=== PATIENT | male | born 1955 | race Caucasian/White ===

== ENCOUNTER 2017-07-22 04:34 | Inpatient (IN) | payer MEDICARE ==
[2017-07-22] MEDS ORDERED: Vancomycin(*) 1,000 MG in NS 0.9% 250 ML* 250 ML IVPB ONE (05:45)
[2017-07-22] MEDS ORDERED: Piperacillin/Tazobac ADVAN(*) 3.375 GM in NS 0.9% 100 ML* 100 ML IVPB ONE (05:46)
[2017-07-22 06:31] LABS: ABS Basophils 0 10^3/ul (0-0.2); ABS Eosinophils 0 10^3/ul (0-0.6); ABS Lymphocytes 0.3 10^3/ul (1.0-4.8); ABS Monocytes 0.6 10^3/ul (0-0.8); ABS Neutrophils 16.7 10^3/ul (1.5-7.7); ABS Nucleated RBC 0 10^3/ul; Eosinophil % 0 % (0-6); Hematocrit 37 % (42-52); Hemoglobin 13.1 g/dl (14.0-18.0); Lymphocyte % 1.8 % (25-47); Mean Corpuscular HGB Conc 35 g/dl (31-36); Mean Corpuscular Hemoglobin 33 pg (27-31); Mean Corpuscular Volume 94 fL (80-94); Mean Platelet Volume 6.8 um3 (7.4-10.4); Nucleated Red Blood Cells % 0; Platelet Count 264 10^3/ul (150-450); Red Blood Count 3.95 10^6/ul (4.0-5.4); Red Cell Distribution Width 14 % (10.5-15); White Blood Count 17.7 10^3/ul (3.5-10.8)
[2017-07-22] MEDS: NS 0.9% 1000 ML* 2,000 ML IV ONE ×2 (06:31→08:17)
[2017-07-22 06:45] LABS: INR 1.32 (0.77-1.02)
[2017-07-22 06:52] LABS: EGFR Non-African American 104.8 (>60)
--- NOTE | 2017-07-22 06:57 | ED ---
Tk Ayers Gabriel, scribed for Zack Grayson MD on 07/22/17 at 0521 . Complex/Multi-Sys Presentation - HPI Summary HPI Summary: This patient is a 62 year old M BIBA to [facility] with a chief complaint of weakness since 72 hours ago. The patient rates the pain 2/10 in severity. Patient reports unable to ambulate and move his bilateral UE. Pt fell earlier today and now has back pain. Pt stats he was unable to make it to the bathroom today and had urinary incontinence. Pt is able to move bilat UEs on command. - History Of Current Complaint Chief Complaint: EDWeakness Time Seen by Provider: 07/22/17 04:38 Hx Obtained From: Patient Onset/Duration: Lasting Days - 3, Still Present Timing: Constant Severity Currently: Moderate Severity Initially: Moderate Location: Pain At: - back Associated Signs And Symptoms: Positive: Other - weakness, fall, difficulty ambulating - Allergies/Home Medications Allergies/Adverse Reactions: Allergies Allergy/AdvReac Type Severity Reaction Status Date / Time MS Benzyl Alcohol Allergy Rash Verified 10/05/14 11:13 [From Tazorac] MS Penicillin G Allergy Swelling Verified 10/05/14 11:13 [Penicillin G] MS Tazarotene [From Tazorac] Allergy Rash Verified 10/05/14 11:13 PMH/Surg Hx/FS Hx/Imm Hx Endocrine/Hematology History: Reports: Other Endocrine/Hematological Disorders Denies: Hx Diabetes Cardiovascular History: Reports: Hx Hypertension - ON MEDS Denies: Hx Pacemaker/ICD GI History: Reports: Hx Gall Bladder Disease - stones History: Denies: Hx Renal Disease Sensory History: Denies: Hx Hearing Aid Psychiatric History: Reports: Hx Anxiety, Hx Panic Disorder - XANAX FOR ANXIETY - Surgical History Surgery Procedure, Year, and Place: APPENDECTOMY; LASER EYE SURGERY Infectious Disease History: No Infectious Disease History: Denies: Traveled Outside the [place] in Last 30 Days - Family History Known Family History: Positive: Hypertension - Social History Alcohol Use: Occasionally Hx Substance Use: No Substance Use Type: Reports: None Hx Tobacco Use: Yes Review of Systems Constitutional: Other - fall Positive: Other - trouble ambulating Genitourinary: Other - urinary incontinence Positive: Other - weakness All Other Systems Reviewed And Are Negative: Yes Physical Exam - Summary Physical Exam Summary: VITAL SIGNS: Reviewed. GENERAL: Patient is an unkempt male who is lying comfortable in the stretcher. Patient appears pale and smells like smoke HEAD AND FACE: No signs of trauma. No ecchymosis, hematomas or skull depressions. No sinus tenderness. EYES: PERRLA, EOMI x 2, No injected conjunctiva, no nystagmus. EARS: Hearing grossly intact. Ear canals and tympanic membranes are within normal limits. MOUTH: Oropharynx within normal limits. NECK: Supple, trachea is midline, no adenopathy, no JVD, no carotid bruit, no c- spine tenderness, neck with full ROM. CHEST: Symmetric, no tenderness at palpation LUNGS: decereased breath sounds CVS: Regular rate and rhythm, S1 and S2 present, no murmurs or gallops appreciated. ABDOMEN: Soft, non-tender. distended. No rebound no guarding, and no masses palpated. Bowel sounds are normal. EXTREMITIES: FROM in all major joints, no edema, no cyanosis or clubbing. NEURO: Alert and oriented x 3. No acute neurological deficits. Speech is normal and follows commands. Grossly non focal generalized weakness of all extremities SKIN: there are multiple spots of ecchymosis of his legs, knees, and elbows Triage Information Reviewed: Yes Vital Signs On Initial Exam: Initial Vitals Temp Pulse Resp BP Pulse Ox 97.4 F 92 18 80/60 98 07/22/17 04:36 07/22/17 04:36 07/22/17 04:36 07/22/17 04:36 07/22/17 04:36 Vital Signs Reviewed: Yes Diagnostics - Vital Signs Vital Signs Temp Pulse Resp BP Pulse Ox 07/22/17 04:36 97.4 F 92 18 80/60 98 - Laboratory Result Diagrams: 07/22/17 06:11 07/22/17 06:11 Lab Statement: Any lab studies that have been ordered have been reviewed, and results considered in the medical decision making process. - Radiology CXR Radiology Interpretation Completed By: ED Physician - bilateral PNA, normal heart size - CT CT Lspine CT Interpretation Completed By: Radiologist - there is no definitive evidence of acute compression fracture or subluxation. There is a multilevel mulit- factorial spondylosis. There is suggestive a diminished changes of the retro peritoneum Dr. Grayson has reviewed this report. CT Cspine CT Interpretation Completed By: Radiologist - there is no definitive evidence of acute compression fracture or subluxation. There is a multilevel mulit- factorial spondylosis. There is suggestive a diminished changes of the retro peritoneum Dr. Grayson has reviewed this report. - EKG 0441 Cardiac Rate: NL EKG Rhythm: Sinus Rhythm - at 94 BPM EKG Interpretation: Normal axis. Normal interval. No ischemic changes Complex Multi-Symp Course/Dx Assessment/Plan: This patient is a 62 year old M BIBA to [facility] with a chief complaint of weakness since 72 hours ago. The patient rates the pain 2/10 in severity. Patient reports unable to ambulate and move his bilateral UE. Pt fell earlier today and now has back pain. Pt stats he was unable to make it to the bathroom today and had urinary incontinence. Pt is able to move bilat UEs on command. An EKG reveals sinus 94 Normal axis. Normal interval. No ischemic changes. CXR reveals, bilateral PNA, normal heart size. CT T-spine reveals, there is no definitive evidence of acute compression fracture or subluxation. There is a multilevel mulit-factorial spondylosis. There is suggestive a diminished changes of the retro peritoneum. CT- L-spine shows, there is no definitive evidence of acute compression fracture or subluxation. There is a multilevel mulit-factorial spondylosis. There is suggestive a diminished changes of the retro peritoneum. Test results with no significant abnormalities except for a CRP of 19, BUN of 34, and WBC of 17. In the ED course the patient was given vancomycin and IV fluids. The pt will be signed out to Dr. Fink awating labs and dispo - Diagnoses Provider Diagnoses: PNA (pneumonia) Discharge - Sign-Out/Discharge Documenting (check all that apply): Sign-Out Patient Signing out patient TO: Joshua Fink - Discharge Plan Referrals: Kalen Parr MD [Primary Care Provider] - The documentation as recorded by the Tk york Gabriel accurately reflects the service I personally performed and the decisions made by me, Zack Grayson MD.
[2017-07-22] MEDS ORDERED: Ondansetron INJ* 2 MG/ML VIAL IV ONE (07:40)
[2017-07-22] MEDS ORDERED: NS 0.9% 1000 ML* 1,000 ML IV ONE (07:40)
[2017-07-22] MEDS ORDERED: Albuterol/Ipratropium NEB.SOL* Albuterol 2.5 MG/Ipratropium 0.5 MG 3 ML INH ONE (07:40)
--- NOTE | 2017-07-22 07:46 | ED ---
Lucinda Ayers Thomas, scribed for Joshua Fink MD on 07/22/17 at 0728 . Progress - Progress Note Progress Note: The patient is a sign out from Dr. Grayson, pending labs and awaiting disposition. Re-Evaluation - Re-Evaluation First Eval Re-Evaluation Time: 07:35 - AWAKE, ALERT. NO C/O SOB. C/O GENERALIZED WEAKNESS. C/O NAUSEA. BP SYSYOLIC 112. DUO NEB, ZOFRAN AND A 3RD LITER ON NS ORDERED WHICH WILL GIVE > 30ML/KG IVF IN THE ED. Course/Dx - Course Course Of Treatment: DISCUSSED WITH DR RODRIGUEZ, HOSPITALIST, WHO WILL ADMIT THE PATIENT. - Provider Notifications Discussed Care Of Patient With: Monique Rodriguez Time Discussed With Above Provider: 07:28 Instructed by Provider To: Admit As Inpatient Discharge - Sign-Out/Discharge Documenting (check all that apply): Discharge - The patient is admitted to [facility] by Dr. Rodriguez. , Receiving Sign-Out Receiving patient FROM: Zack Grayson - Discharge Plan Condition: Fair Disposition: ADMITTED TO [facility] Referrals: Kalen Parr MD [Primary Care Provider] - - Billing Disposition and Condition Condition: FAIR Disposition: HOSP-[facility] The documentation as recorded by the Lucinda york Thomas accurately reflects the service I personally performed and the decisions made by , Joshua Fink MD.
--- NOTE | 2017-07-22 07:53 | RAD ---
HISTORY: Shortness of breath COMPARISONS: CT dated March 30, 2015, CT of the thoracic spine dated July 22, 2012 VIEWS: 2: frontal portable view of the chest at 5:13 AM FINDINGS: LINES AND TUBES: None. CARDIOMEDIASTINAL SILHOUETTE: The cardiomediastinal silhouette is normal for portable technique. PLEURA: The costophrenic angles are sharp. No pleural abnormalities are noted. LUNG PARENCHYMA: There is diffuse multifocal pattern of reticulonodular opacification throughout both lung nuñez with apical predominance. There is patchy alveolar opacification of the right lung base. ABDOMEN: The upper abdomen is clear. There is no subphrenic gas. BONES AND SOFT TISSUES: No bone or soft tissue abnormalities are noted. IMPRESSION: MULTIFOCAL RETICULONODULAR OPACIFICATION THROUGHOUT BOTH LUNGS WITH MORE FOCAL AIRSPACE DISEASE OF THE RIGHT LOWER LUNG. THE RETICULONODULAR PATTERN APPEARS TO CORRESPOND TO THE MULTIPLE PULMONARY PARENCHYMAL NODULES NOTED ON THE CT REPORTED ON JULY 22, 2017. THERE IS MORE FOCAL AIRSPACE DISEASE OF THE RIGHT LOWER LUNG.
--- NOTE | 2017-07-22 08:00 | RAD ---
HISTORY: Fall, muscle weakness COMPARISONS: MRI dated June 18, 2013, chest x-ray dated July 22, 2014, CT of the thoracic spine dated July 22, 2017. TECHNIQUE: Multiple contiguous axial CT scans were obtained of the lumbar spine without intravenous contrast, with coronal and sagittal multiplanar reformations. FINDINGS: SPINAL CANAL: Evaluation of the central canal is limited on CT technique; however, there is no obvious canalicular mass or epidural hemorrhage. ALIGNMENT: The alignment is normal. VERTEBRAL BODIES: There is an accessory rib of L1 on the right. There is depression of the superior endplate of L1 with a linear lucency paralleling the superior endplate, consistent with a subacute compression fracture. There is no osseous retropulsion. There is sclerotic reactive end plate changes at L2-L3. There is multilevel anterolateral marginal osteophyte formation. JOINTS: There is diffuse facet osteoarthritis most pronounced along the lower lumbar spine. MUSCULATURE: Unremarkable INTERVERTEBRAL DISCS: There is diffuse loss of intervertebral disc height throughout the spine. AXIAL IMAGES: T11-T12: There is no osseous neural foraminal narrowing or central canal stenosis. T12-L1: There is no osseous neural foraminal narrowing or central canal stenosis. L1-L2: There is no osseous neural foraminal narrowing or central canal stenosis. L2-L3: There is ligamentous and facet hypertrophy. There is marginal osteophyte formation at the neural foramina bilaterally. There is severe bilateral neural foraminal narrowing. There is moderate narrowing of the central canal. L3-L4: There is bilateral facet hypertrophy. There is marginal osteophyte formation at the neural foramina bilaterally. There is ligamentous hypertrophy with a mild disc bulge. There is severe right and moderate left neural foraminal narrowing. There is mild narrowing of the central canal. L4-L5: There is a broad-based disc bulge. There is bilateral facet hypertrophy. There is moderate left neural foraminal narrowing. There is no significant central canal stenosis. L5-S1: There is bilateral facet hypertrophy with marginal osteophyte formation on the right. There is moderate right neural foraminal narrowing. There is no significant central canal stenosis. SOFT TISSUES: There is retroperitoneal edema with retrocardiac lymphadenopathy.. OTHER: None IMPRESSION: 1. SUBACUTE COMPRESSION FRACTURE OF L1, WITHOUT OSSEOUS RETROPULSION. 2. DEGENERATIVE DISC DISEASE AND OSTEOARTHRITIS. 3. THERE IS MODERATE NARROWING OF THE CENTRAL CANAL AT L2-L3 WITH MILD NARROWING AT L3-L4. IS MULTILEVEL NEURAL FORAMINAL NARROWING RIGHT ABOVE. 4. THERE IS RECURRENT NO LYMPHADENOPATHY. GIVEN THE FINDINGS ON CHEST X-RAY AND CT OF THE THORACIC SPINE, THIS IS CONCERNING FOR METASTATIC DISEASE. PRELIMINARY FINDINGS WERE DISCUSSED WITH DR. VINCENT AT APPROXIMATELY 7:56 AM ON JULY 22, 2017.
--- NOTE | 2017-07-22 08:03 | RAD ---
HISTORY: Fall, muscle weakness COMPARISONS: Chest x-ray dated July 22, 2012, CT of the lumbar spine dated July 22, 2017 TECHNIQUE: Multiple contiguous axial CT scans were obtained of the thoracic spine without intravenous contrast, with coronal and sagittal multiplanar reformations. FINDINGS: SPINAL CANAL: Evaluation of the central canal is limited on CT technique; however, there is no obvious canalicular mass or epidural hemorrhage. ALIGNMENT: There is a mild dextroscoliotic curvature of the spine. VERTEBRAL BODIES: The vertebral bodies are preserved in height. There is diffuse osteopenia. Is multilevel anterolateral marginal osteophyte formation. JOINTS: There is osteoarthritis of the costovertebral articulations. MUSCULATURE: Unremarkable INTERVERTEBRAL DISCS: There is diffuse loss of intervertebral disc height throughout the spine. AXIAL IMAGES: There is no osseous central canal stenosis or neuroforaminal narrowing. SOFT TISSUES: There are large bilateral pleural effusions. There are multiple pulmonary parenchymal nodules, measuring at least 1.1 cm in size. This appears to correspond to the reticular nodular pattern noted on chest x-ray. OTHER: None IMPRESSION: 1. OSTEOPENIA. 2. DEGENERATIVE DISC DISEASE AND OSTEOARTHRITIS. 3. THERE IS NO OSSEOUS NEURAL FORAMINAL AREA OR CENTRAL CANAL STENOSIS. 4. LARGE BILATERAL PLEURAL EFFUSIONS. 5. MULTIPLE PULMONARY PARENCHYMAL NODULES CORRESPONDING TO THE RETICULAR NODULAR PATTERN NOTED ON CHEST X-RAY, CONSISTENT WITH METASTATIC DISEASE TO THE LUNGS. PRELIMINARY FINDINGS WERE DISCUSSED WITH DR. VINCENT AT APPROXIMATELY 7:56 AM ON JULY 22, 2017.
[2017-07-22] MEDS ORDERED: BuPROPion XL* 300 MG TAB.XL PO PRN (08:04)
[2017-07-22] MEDS ORDERED: Albuterol/Ipratropium NEB.SOL* Albuterol 2.5 MG/Ipratropium 0.5 MG 3 ML INH PRN (08:05)
[2017-07-22] MEDS ORDERED: Morphine INJ* 2 MG/ML 1 ML CARPUJECT IV PRN (08:05)
[2017-07-22] MEDS ORDERED: NS 0.9% 1000 ML* 1,000 ML IV SCH (08:15)
[2017-07-22 08:26] LABS: Urine Appearance Cloudy; Urine Blood Negative (Negative); Urine Color Yellow; Urine Ketones Trace (Negative); Urine Protein 1+(30 mg/dL) (Negative); Urine Urobilinogen Positive (Negative)
--- NOTE | 2017-07-22 10:44 | HP ---
CC: Emergency room provider, Dr. Joshua Fink; primary care provider, Dr. Neno Parr; Consulting Critical Care Provider, Dr. Александр Leigh * HISTORY AND PHYSICAL: DATE OF ADMISSION: 07/22/17 TIME OF EVALUATION: 07:45 a.m. CHIEF COMPLAINT: "I am weak." HISTORY OF PRESENT ILLNESS: Mr. Jaramillo is a 62-year-old male with a past medical history of Asperger's disorder, testicular hypofunction, cholelithiasis , spinal stenosis, hyperlipidemia, hypertension, tobacco abuse, who presents to the emergency room after he sustained a fall at home and was unable to stand up , needing to call EMS to bring him to the emergency room. Mr. Jaramillo is somewhat of a poor historian, but he is able to tell me that for the past 2 days he has been feeling "crappy." He states that his breathing was "rough" and he had some dry cough and some diffuse chest pain with inspiration that he graded 2/10 with no radiation. When asked to pinpoint where exactly is the pain, he states "I have pain in both my lobes." He states that his appetite was unchanged and that he was trying to drink fluids but he was feeling dehydrated. When asked to explain what he meant by that, he states that he felt weak and lightheaded. He denies nausea, vomiting, or diarrhea. He states that he sustained multiple falls over the past 48 hours, but the last one last night he was unable to get up. He does not know exactly how long he was on the floor, but he had to crawl to his kitchen and used a cane to drop his phone from a table and then he was able to call EMS. He states that both his arms and legs were weak and he felt like "I did not have enough oxygen on them." In the emergency room, the patient's workup revealed leukocytosis, hyponatremia and bilateral infiltrates in his chest x-ray and for that reason the hospitalist service was called for admission. PAST MEDICAL HISTORY: 1. Asperger's disorder. 2. Testicular hypofunction, AndroGel was discontinued due to severe anxiety. 3. Cholelithiasis. 4. Spinal stenosis. 5. Tobacco abuse. 6. Hyperlipidemia. 7. Hypertension. MEDICATION LIST: As per ED note: 1. Alprazolam 0.5 mg p.o. t.i.d. as needed for anxiety. 2. Bupropion XL 300 mg p.o. daily as needed for depression. 3. Clonazepam 1 mg p.o. q.p.m. 4. Haldol 4 mg p.o. b.i.d. 5. Methylphenidate 10 p.o. b.i.d. to t.i.d. 6. Metoprolol succinate 50 mg p.o. daily. 7. Ursodiol 300 mg p.o. b.i.d. ALLERGIES: With TAZORAC the patient had a rash and with PENICILLIN the patient had swelling. FAMILY HISTORY: Reviewed and the patient has family history of gastrointestinal tumor. SOCIAL HISTORY: The patient lives by himself. He states that he was a heavy drinker since 1996 when his mother passed up to half a bottle of vodka a day, but states that he quit a year ago. He is a smoker, he started when he was 14, up to 2 packs a day and he states that he is now smoking 5 to 10 cigarettes a day. He denies drug use. Surrogate decision maker is his friend, Florentin De Los Santos, phone number [phone]. REVIEW OF SYSTEMS: A 14-point review of systems was performed and all the pertinent negative and positive findings are in the HPI. PHYSICAL EXAMINATION GENERAL: The patient is an elderly male with very disheveled appearance, lying in the ED stretcher in no acute distress. VITAL SIGNS: Temperature 97.4, heart rate is 92, respiratory rate is 14, oxygen saturation 93% on room air, blood pressure is 103/65 but it was 80/60 on arrival to the emergency room. HEENT: Pupils are equal. The patient has significant lid lag and mild scleral icterus. NECK: No JVD. No thyromegaly. CHEST: Breath sounds bilaterally decreased. There is no added sounds. CVS: Normal S1, S2. Regular rate and rhythm with distant sounds. ABDOMEN: Soft with mild epigastric tenderness. Hepatomegaly, non tender. No guarding, no rebound. Bowel sounds present. EXTREMITIES: No edema. SKIN: multiple bruises on different stages on healing. NEUROLOGIC: The patient is alert and oriented x3, able to move all 4 extremities. LABORATORY AND IMAGING DATA: The patient had a CBC that showed a WBC of 17.7, hemoglobin of 13, hematocrit of 37, platelets of 264 with 94% neutrophils. His INR was 1.3. Chemistry showed a sodium of 116, potassium of 3.9, chloride of 80 , bicarb of 26, BUN of 26, creatinine 0.75, glucose of 88, lactic acid of 1.8, calcium of 9.3. LFTs showed a total bilirubin of 2.3, AST of 169, ALT of 58, alk phos 243. CPK was 1388 with a troponin of 0.05, CRP of 19, BNP 82. Total protein 6.2, albumin 3.9, globulin 7.3. EKG done on 07/22/17 at 04:41 a.m. showed sinus rhythm at 94 beats per minute with low voltage in the precordial leads, but no significant ST-T changes. There is no prior EKG to compare. Chest x-ray showed multifocal reticular nodular opacification at both lungs with more focal airspace disease in the right lower lung. The reticular nodular pattern appears to correspond to the multiple pulmonary parenchymal nodules noted on the CT. There is more focal airspace disease at the right lower lung. CT of the lumbar spine, subacute compression fracture of L1 without osseous retropulsion. Degenerative disk disease and osteoarthritis. There is moderate narrowing of the central canal L2-L3 with mild narrowing at L3-L4. There is multilevel neural foraminal narrowing on the right side. There is retroperitoneal edema with retrocardiac lymphadenopathy and this associated with findings on chest x-ray and CT of thoracic spine is concerning for metastatic disease. CT of the thoracic spine shows osteopenia, degenerative disk disease and osteoarthritis with no osseous neural foraminal area or central canal stenosis. Large bilateral pleural effusions. Multiple pulmonary parenchymal nodules corresponding to the reticular nodular pattern noted on chest x-ray consistent with metastatic disease to the lungs. ASSESSMENT AND PLAN: Mr. Jaramillo is a 62-year-old male with past medical history of Asperger's, hypertension, hyperlipidemia, cholelithiasis, tobacco abuse that presented to the emergency room with complaints of weakness, found to have severe sepsis secondary to pneumonia versus possible cholecystitis in the setting of probable metastatic disease. 1. Severe sepsis. The patient's presentation was compatible with systemic inflammatory response syndrome on presentation with tachycardia and leukocytosis. On top of that, he was also hypotensive with a blood pressure of 80/60 on ER arrival. The patient also presented with transaminitis and severe hyponatremia. Source appears to be pneumonia. 2. Pneumonia. The patient's chest x-ray shows bilateral reticular nodular infiltrates that could be secondary to metastatic disease, but at this point we cannot rule out infection. Blood, sputum and urine cultures will be sent as well as Legionella and pneumococcal antigens. He will be started empirically on ceftriaxone and Zithromax and due to his presentation with hypotension, transaminitis, severe hyponatremia, the patient will be admitted to the intensive care unit. 3. Transaminitis. The patient has a history of alcohol abuse for 20 years, but he states that he quit. He also has a history of cholelithiasis. He will have a CT of the abdomen to better assess his liver. His transaminitis could be associated to sepsis, possible cholecystitis, but also metastatic disease. 4. Severe hyponatremia. The patient was found to have a sodium of 116. At this point, his mental status is intact with no signs of confusion. He did have mild hyponatremia in the past with a sodium of 129 in early 2017. With his history of tobacco abuse and lung nodules, I suspect his hyponatremia secondary to SIADH associated with pulmonary problem, but he does appear to have mild dehydration. He will be admitted to the intensive care unit. He will receive IV hydration and we will monitor his sodium level. 5. Rhabdomyolysis. The patient's CPK is 1300 and this is likely associated with his falls and stay on the floor for a prolonged period until he was able to call EMS. We are going to trend his CPK and monitor his renal function. 6. Troponin elevation. His troponin is 0.05. His EKG showed no ischemic changes, we are going to check serial troponin and this could be secondary to increased demand in the setting of sepsis. 7. Lid lag. We will check patient's thyroid function, but I believe this is likely his baseline. 8. Possible metastatic disease. The patient is a heavy smoker that presents with lung nodules and lymphadenopathy, highly suspicious for malignancy. The patient will have a CT of the chest, abdomen and pelvis with IV contrast to better delineate the disease process and depending on the findings, we will pursue biopsy. 9. DVT prophylaxis: The patient has a score of 2 on the DVT Prophylaxis Risk Assessment Guide and he will be started on subcutaneous heparin. 10. Code status is full. TIME SPENT: Approximately 60 minutes was spent with the patient interview, medical records review, physical examination to complete this admission; more than half this time was spent [id number] with patient and coordination of care. [id number]/[facility] #: [id number] RAMONE
[2017-07-22] MEDS: Methylphenidate TAB* 10 MG PO SCH ×2 (11:07→14:43)
[2017-07-22] MEDS: Haloperidol TAB* 2 MG PO SCH ×2 (11:08→21:45)
[2017-07-22] MEDS: Ursodiol CAP* 300 MG PO SCH ×2 (11:08→21:38)
[2017-07-22] MEDS: cefTRIAXone(*) 1 GM in NS 0.9% 50 ML* 50 ML IVPB SCH (11:09)
[2017-07-22 11:22] LABS: EGFR Non-African American 135.6 (>60)
[2017-07-22] MEDS ORDERED: Iohexol 300* (CONTRAST) 10 ML SDV IV ONE (11:56)
[2017-07-22] MEDS ORDERED: Potassium Chloride LIQUID* 20 MEQ PACKET PO ONE (12:07)
--- NOTE | 2017-07-22 12:07 | CONSULT ---
Consult Consult: Consultation Note Critical Care Requesting Physician: Dr Shu Rodriguez Reason for consult: sepsis Limitations in history/physical: none Date of consult: 07/22/2017 HPI: 62y M w/pmhx of HTN, cholelithiasis, anxiety disorder, Aspergers disorder, testicular dysfunction, spinal stenosis, tobacco use; presents to ER for weakness x3 days, associated with weakness in upper extremities. He states incontinence noted at home. Patient fell at home and unable to stand, hence he called EMS. Some chest discomfort on inspiration. No change in appetite noted. No fever/chills/sob. In ER, tachycardic 92, BP 80/60s, RR 18 sat 98%, temp 97.4. WBC 17. Started on sepsis protocol and given IVF and IV abx. CXR 07/22 with suspected Right lower lobe pneumonia. ROS: negative except for pertinent positives mentioned above. PMHx: hypertension, cholelithiasis, anxiety disorder, Aspergers disorder, testicular dysfunction, spinal stenosis, tobacco use PSHx: appendectomy Family History: HTN Social History: Alcohol-occassional, Smoking-in past, Drug use-no Allergies: Allergies Allergy/AdvReac Type Severity Reaction Status Date / Time benzyl alcohol Allergy Rash Verified 07/22/17 08:36 penicillin G Allergy Swelling Verified 07/22/17 08:36 tazarotene Allergy Rash Verified 07/22/17 08:36 Home Medications: ALPRAZolam TAB* [Xanax TAB*] 0.5 mg PO TID PRN 07/22/17 [History Confirmed 07/22] BuPROPion XL* [Bupropion XL*] 300 mg PO DAILY PRN 07/22/17 [History Confirmed ] Haloperidol TAB* [Haldol TAB*] 4 mg PO BID 07/22/17 [History Confirmed 07/22/17] Methylphenidate TAB* [Ritalin TAB*] 10 mg PO .BID-TID 07/22/17 [History Confirmed 07/22/17] Metoprolol Succinate XL TAB* [Toprol XL TAB*] 50 mg PO DAILY 07/22/17 [History Confirmed 07/22/17] Ursodiol CAP* [Actigall CAP 300 MG*] 300 mg PO BID 07/22/17 [History Confirmed 07/22/17] clonazePAM TAB(*) [KlonoPIN TAB(*)] 1 mg PO QPM 07/22/17 [History Confirmed ] Tele: NSR Vitals: Vital Signs Temp 98 F 07/22/17 09:20 Pulse 95 07/22/17 11:00 Resp 18 07/22/17 11:00 BP 121/79 07/22/17 11:00 Pulse Ox 97 07/22/17 11:00 Intake & Output 07/21/17 07/22/17 07/22/17 18:59 06:59 18:59 Intake Total 1702 Output Total 350 Balance 1352 Weight 190 lb 184 lb Intake: IV Fluids 1352 Oral 350 Output: Urine 350 O2/Vent: RA Infusions: NS 150 cc/hr Current Medications: Acetaminophen (Tylenol Tab*) 650 mg PO Q6H PRN PRN Reason: pain/fever Albuterol/Ipratropium (Duoneb (Albuterol 2.5 Mg/Ipratropium 0.5 Mg)) 1 neb INH Q4H PRN PRN Reason: SOB/WHEEZING Alprazolam (Xanax Tab*) 0.5 mg PO TID PRN PRN Reason: AGITATION/ANXIETY Bupropion HCl (Bupropion Xl*) 300 mg PO DAILY PRN PRN Reason: PER PROTOCOL Clonazepam (Klonopin Tab(*)) 1 mg PO QPM [place] Haloperidol (Haldol Tab*) 4 mg PO BID [facility] Last Admin: 07/22/17 11:08 Dose: Not Given Heparin Sodium (Porcine) (Heparin Vial(*)) 5,000 units SUBCUT Q8HR [facility] Ceftriaxone Sodium 1 gm/ (Sodium Chloride) 50 mls @ 200 mls/hr IVPB Q24H [facility] Last Admin: 07/22/17 11:09 Dose: 200 mls/hr Azithromycin 500 mg/ Sodium (Chloride) 250 mls @ 250 mls/hr IVPB Q24H [facility] Sodium Chloride (Ns 0.9% 1000 Ml*) 1,000 mls @ 100 mls/hr IV PER RATE [facility] Methylphenidate HCl (Ritalin Tab*) 10 mg PO 0800,1500 [facility] Last Admin: 07/22/17 11:07 Dose: Not Given Morphine Sulfate (Morphine Inj (Syringe)*) 2 mg IV Q4H PRN PRN Reason: PAIN Ursodiol (Actigall Cap*) 300 mg PO BID [place] Last Admin: 07/22/17 11:08 Dose: Not Given Physical Exam: General: awake, alert, no distress, no diaphoresis Head: normocephalic, atraumatic HEENT: no pallor, no icterus, moist mucous membranes Neck: soft, supple, no jvd, no stridor CVS: normal rate, regular, no murmur Resp: bilateral air entry, no rhales, no wheeze, no rhonchi, no acc muscle use Abdomen: soft, nontender, nondistended, bs+ Ext: pulses+, warm, no edema Skin: intact Neuro: awake, alert, orientedx3, moving all extremities, no gross focal deficit Labs: Laboratory Results - last 24 hr 07/22/17 07/22/17 07/22/17 06:11 06:11 06:11 WBC 17.7 H RBC 3.95 L Hgb 13.1 L Hct 37 L MCV 94 MCH 33 H MCHC 35 RDW 14 Plt Count 264 MPV 6.8 L Neut % (Auto) 94.3 H Lymph % (Auto) 1.8 L [place] % (Auto) 3.7 Eos % (Auto) 0 Baso % (Auto) 0.2 Absolute Neuts (auto) 16.7 H Absolute Lymphs (auto) 0.3 L Absolute Monos (auto) 0.6 Absolute Eos (auto) 0 Absolute Basos (auto) 0 Absolute Nucleated RBC 0 Nucleated RBC % 0 INR (Anticoag Therapy) 1.32 H APTT 27.2 Sodium 116 L* Potassium 3.9 Chloride 80 L Carbon Dioxide 26 Anion Gap 10 BUN 26 H Creatinine 0.75 Est GFR ( Amer) 134.8 Est GFR (Non-Af Amer) 104.8 BUN/Creatinine Ratio 34.7 H Glucose 88 Lactic Acid Calcium 9.3 Total Bilirubin 2.30 H AST 169 H ALT 58 H Alkaline Phosphatase 243 H Total Creatine Kinase 1388 H Troponin I 0.05 H* C-Reactive Protein 19.07 H B-Natriuretic Peptide Total Protein 6.2 L Albumin 3.9 Globulin 2.3 Albumin/Globulin Ratio 1.7 TSH 5.02 Urine Color Urine Appearance Urine pH Ur Specific [place] Urine Protein Urine Ketones Urine Blood Urine Nitrate Urine Bilirubin Urine Urobilinogen Ur Leukocyte Esterase Urine WBC (Auto) Urine RBC (Auto) Urine Bacteria Ur Random Creatinine Ur Random Sodium Urine Glucose Urine Ascorbic Acid Urine Opiates Screen Ur Barbiturates Screen Ur Phencyclidine Scrn Ur Amphetamines Screen U Benzodiazepines Scrn Urine Cocaine Screen U Cannabinoids Screen 07/22/17 07/22/17 07/22/17 06:11 06:11 08:02 WBC RBC Hgb Hct MCV MCH MCHC RDW Plt Count MPV Neut % (Auto) Lymph % (Auto) [place] % (Auto) Eos % (Auto) Baso % (Auto) Absolute Neuts (auto) Absolute Lymphs (auto) Absolute Monos (auto) Absolute Eos (auto) Absolute Basos (auto) Absolute Nucleated RBC Nucleated RBC % INR (Anticoag Therapy) APTT Sodium Potassium Chloride Carbon Dioxide Anion Gap BUN Creatinine Est GFR ( Amer) Est GFR (Non-Af Amer) BUN/Creatinine Ratio Glucose Lactic Acid 1.8 Calcium Total Bilirubin AST ALT Alkaline Phosphatase Total Creatine Kinase Troponin I C-Reactive Protein B-Natriuretic Peptide 82 Total Protein Albumin Globulin Albumin/Globulin Ratio TSH Urine Color Urine Appearance Urine pH Ur Specific [place] Urine Protein Urine Ketones Urine Blood Urine Nitrate Urine Bilirubin Urine Urobilinogen Ur Leukocyte Esterase Urine WBC (Auto) Urine RBC (Auto) Urine Bacteria Ur Random Creatinine Ur Random Sodium Urine Glucose Urine Ascorbic Acid Urine Opiates Screen None detected Ur Barbiturates Screen None detected Ur Phencyclidine Scrn None detected Ur Amphetamines Screen None detected U Benzodiazepines Scrn Presumptive positive A Urine Cocaine Screen None detected U Cannabinoids Screen None detected 07/22/17 07/22/17 07/22/17 08:02 10:48 10:52 WBC RBC Hgb Hct MCV MCH MCHC RDW Plt Count MPV Neut % (Auto) Lymph % (Auto) [place] % (Auto) Eos % (Auto) Baso % (Auto) Absolute Neuts (auto) Absolute Lymphs (auto) Absolute Monos (auto) Absolute Eos (auto) Absolute Basos (auto) Absolute Nucleated RBC Nucleated RBC % INR (Anticoag Therapy) APTT Sodium 120 L Potassium 3.6 Chloride 89 L Carbon Dioxide 23 Anion Gap 8 BUN 22 Creatinine 0.60 L Est GFR ( Amer) 174.4 Est GFR (Non-Af Amer) 135.6 BUN/Creatinine Ratio 36.7 H Glucose 84 Lactic Acid Calcium 8.0 L Total Bilirubin AST ALT Alkaline Phosphatase Total Creatine Kinase Troponin I 0.04 H* C-Reactive Protein B-Natriuretic Peptide Total Protein Albumin Globulin Albumin/Globulin Ratio TSH Urine Color Yellow Urine Appearance Cloudy Urine pH 6.0 Ur Specific [place] 1.020 Urine Protein 1+(30 mg/dl) A Urine Ketones Trace A Urine Blood Negative Urine Nitrate Negative Urine Bilirubin Negative Urine Urobilinogen Positive A Ur Leukocyte Esterase Negative Urine WBC (Auto) Trace(0-5/hpf) Urine RBC (Auto) Trace(0-2/hpf) Urine Bacteria Absent Ur Random Creatinine 20.32 Ur Random Sodium < 18 Urine Glucose Negative Urine Ascorbic Acid * A Urine Opiates Screen Ur Barbiturates Screen Ur Phencyclidine Scrn Ur Amphetamines Screen U Benzodiazepines Scrn Urine Cocaine Screen U Cannabinoids Screen Imaging: cxr 07/22 - reviewed ; reticulonodular densities bilaterally, suspected right lower lobe consolidation+ Assessment: 62y M w/pmhx of HTN, cholelithiasis, anxiety disorder, Aspergers disorder, testicular dysfunction, spinal stenosis, tobacco use; presents to ER for weakness x3 days, associated with weakness in upper extremities. He states incontinence noted at home. Patient fell at home and unable to stand, hence he called EMS. Hypotensive to 80s in ER, responded to IVF. -Severe Sepsis -Suspected Right lower lobe pneumonia -s/p fall -Rhabdomyolysis -hypovolemic hyponatremia -Elevated LFTs -reticulonodular infiltrates+ -r/o biliary obstruction and cholecystitis Aspergers disorder Anxiety disorder Plan: Neuro- stable. Known history of Aspergers. Cont Ritalin. Cont clonazepam and Alprazolam PRN. CVS- BP in 120-130s, improved after IVF. Suspect volume depletion, poor PO intake+, hypovolemia, possible sepsis. Cont IV Abx. Check LA next blood draw x1. Follow urine output. HR still 90s. Resp- on RA, no distress. CXR with suspected RLL infiltrate and bilateral reticulonodular infiltrates. IV abx. Bronchodilators PRN. CT chest today for eval of infiltrates/nodules. ID- afebrile. wbc 17. Possible RLL infiltrate. R/o biliary obstruction/ cholecystitis given elevated LFTs and Alk phos. For CT chest/abd/pelvis today. h /o cholelithiasis in past. Cont Ceftriaxone/Azithromycin IV daily (day#1) GI- Pending CT abd. Can probably start PO diet today. Renal- Cr okay. BUN was slightly elevated 26 on admission, repeat improved. Hyponatremia/hypochloremia. Suspect intravascular volume depletion as cause of electrolyte depletion and hypotension. Na improving also. Cont NS, dec to 100cc/ hour. Unclear how long sodium has been low but would slowly increase with normal tonic fluid. No aleman indicated at this time if able to track urine output. Noted CPK, repeat tomorrow, cont IVF hydration to prevent ALESSANDRO. Heme- hg 13. plt okay. DVT proph with heparin sq/mechanical. Endo- fingersticks as needed. TSH normal. Musculsk- no noted weakness, able to move all ext. Noted rhabdo, check cpk in AM. Cont IVF hydration. Wounds- none Nutrition- regular diet for now. DVT prophylaxis: heparin sq GI prophylaxis: none Central Line: no Arterial Line: no Aleman Cathetor: no Disposition: ICU, can be stable for medical floor transfer Code Status: full code Александр Leigh MD Filling And Packing Supervisor (Electronically Signed)
[2017-07-22] MEDS: Azithromycin IV(*) 500 MG in NS 0.9% 250 ML* 250 ML IVPB SCH (12:31)
[2017-07-22] MEDS: ALPRAZolam TAB* 0.5 MG PO PRN (12:37)
--- NOTE | 2017-07-22 13:36 | RAD ---
HISTORY: Smoker, lung nodules, transaminitis COMPARISONS: CT of the chest dated March 30, 2015, CT of the lumbar spine dated July 22, 2017. TECHNIQUE: Multiple contiguous axial CT scans were obtained of the chest, abdomen, and pelvis after the administration of intravenous contrast. Coronal and sagittal multiplanar reformations are submitted for review.. Oral contrast was administered. Delayed images were obtained through the abdomen and pelvis. FINDINGS: CHEST NECK AND THYROID: There are borderline-enlarged lower cervical lymph nodes on the left measuring up to 1 cm in short axis. CHEST WALL: There is no lower cervical, axillary, or supraclavicular lymphadenopathy by size criteria. HEART AND PERICARDIUM: There is a small pericardial effusion. AORTA AND PULMONARY VASCULATURE: The aorta and pulmonary vasculature are normal. MEDIASTINUM: There are enlarged AP window, paratracheal, and subcarinal lymph nodes measuring up to 2 cm in short axis. These appear centrally necrotic. EVELIN: There are enlarged left hilar lymph nodes measuring up to 2.2 cm in short axis. These also appears centrally necrotic. AIRWAY AND ESOPHAGUS: The airway is unremarkable, without endobronchial filling defect. The esophagus is grossly normal. LUNG PARENCHYMA: There are innumerable pulmonary parenchymal nodules in random distribution bilaterally. Several appear cavitary. PLEURA: There are large bilateral pleural effusions. BONES AND SOFT TISSUES: Incidentally noted is a sternal foramen. ABDOMEN/PELVIS: LIVER: There are multiple low-attenuation hepatic parenchymal lesions, essentially replacing the bulk of the hepatic parenchyma. The largest measures up to 8.8 cm in size. BILE DUCTS: There is no intrahepatic or extrahepatic biliary dilatation. GALLBLADDER: The gallbladder is incompletely distended. Several small stones are noted.. PANCREAS: The pancreas is normal, without mass or ductal dilatation. SPLEEN: Normal in size and appearance. UPPER GI TRACT: Evaluation of the gastrointestinal tract is limited by incomplete gastric distention. The upper GI tract is unremarkable. SMALL BOWEL & MESENTERY: The small bowel is normal in contour, course, and caliber. There is no obstruction or dilatation. COLON: The colon is normal in contour, course, caliber. There is no pericolonic inflammatory change. ADRENALS: There is nodular enlargement of the left adrenal gland suggestive of hyperplasia. KIDNEYS: The kidneys are normal in shape, size, contour, and axis. There is no hydronephrosis or nephrolithiasis. BLADDER: The bladder is smooth in contour. PELVIC ORGANS: The prostate gland is mildly enlarged. The seminal vesicles are symmetric. AORTA: There is calcific atherosclerotic disease of the abdominal aorta and its branches, without aneurysmal dilatation IVC: Unremarkable LYMPH NODES: There are enlarged portacaval, gastrohepatic, and periceliac lymph nodes. There are enlarged aorto caval and left periaortic lymph nodes. ABDOMINAL WALL: There is a small fat-containing left inguinal hernia. BONES AND SOFT TISSUES: Again noted is a compression deformity of L1.. OTHER: There is a trace amount of ascites. IMPRESSION: 1. THERE ARE INNUMERABLE PULMONARY PARENCHYMAL NODULES, SEVERAL OF WHICH APPEAR CAVITARY. 2. THERE IS MEDIASTINAL AND LEFT HILAR LYMPHADENOPATHY WITH BORDERLINE ENLARGED LOWER CERVICAL LYMPH NODES. 3. THERE ARE MULTIPLE HEPATIC MASSES. 4. THERE IS RETROPERITONEAL AND MESENTERIC LYMPHADENOPATHY. 5. TOGETHER, THIS IS MOST CONSISTENT WITH A FOCAL METASTATIC DISEASE. 6. LARGE BILATERAL PLEURAL EFFUSIONS. 7. TRACE ASCITES. 8. ATHEROSCLEROSIS. 9. MILDLY ENLARGED PROSTATE. 10. CHOLELITHIASIS.
[2017-07-22] MEDS: Heparin VIAL(*) 5000 UNITS/ML VIAL (FIVE THOUSAND) SUBCUT SCH ×2 (14:42→21:56)
[2017-07-22 17:08] LABS: EGFR Non-African American 138.3 (>60)
[2017-07-22] MEDS: clonazePAM TAB(*) 1 MG PO SCH (18:41)
[2017-07-22] MEDS: NS 0.9% 1000 ML* 1,000 ML IV SCH (21:00)
[2017-07-22 23:29] LABS: EGFR Non-African American 153.2 (>60)
[2017-07-23] MEDS: Heparin VIAL(*) 5000 UNITS/ML VIAL (FIVE THOUSAND) SUBCUT SCH ×3 (06:27→22:04)
[2017-07-23] MEDS: ALPRAZolam TAB* 0.5 MG PO PRN ×2 (06:34→12:46)
[2017-07-23 06:40] LABS: Hematocrit 35 % (42-52); Hemoglobin 12.2 g/dl (14.0-18.0); Mean Corpuscular HGB Conc 35 g/dl (31-36); Mean Corpuscular Hemoglobin 34 pg (27-31); Mean Corpuscular Volume 96 fL (80-94); Mean Platelet Volume 6.4 um3 (7.4-10.4); Platelet Count 215 10^3/ul (150-450); Red Cell Distribution Width 14 % (10.5-15); White Blood Count 13.7 10^3/ul (3.5-10.8)
[2017-07-23 07:02] LABS: EGFR Non-African American 146.9 (>60)
[2017-07-23] MEDS: Haloperidol TAB* 2 MG PO SCH ×2 (07:19→22:04)
[2017-07-23] MEDS ORDERED: Potassium Chloride LIQUID* 20 MEQ PACKET PO ONE (08:20)
[2017-07-23] MEDS: Ursodiol CAP* 300 MG PO SCH ×2 (08:31→22:04)
[2017-07-23] MEDS: Azithromycin IV(*) 500 MG in NS 0.9% 250 ML* 250 ML IVPB SCH (08:31)
[2017-07-23] MEDS: Methylphenidate TAB* 10 MG PO SCH ×2 (08:32→15:43)
[2017-07-23] MEDS: Acetaminophen TAB* 325 MG PO PRN ×2 (09:08→18:24)
--- NOTE | 2017-07-23 09:43 | PN ---
Progress Note - Progress Note Date of Service: 07/23/17 Note: Progress Note Critical Care 24 hour events: -on NS infusion -no events overnight, comfortable in bed, eating -making urine, no aleman -CT abd/chest reviewed -Dr Rodriguez reviewed with patient this morning Tele: NSR Vitals: Vital Signs Temp 98.6 F 07/23/17 08:09 Pulse 102 07/23/17 09:01 Resp 19 07/23/17 09:01 BP 123/81 07/23/17 09:00 Pulse Ox 98 07/23/17 09:01 Intake & Output 07/22/17 07/23/17 07/23/17 18:59 06:59 18:59 Intake Total 2698 2574 200 Output Total 750 475 350 Balance 1948 2099 -150 Weight 184 lb 188 lb 0.869 oz Intake: IV Fluids 1403 1824 NS (0.9%) 51 1824 IVPB 325 NS (0.9%) 325 Oral 970 750 200 Output: Urine 750 475 350 Other: Date of Last Bowel 07.23.2017 07.23.2017 Movement Estimated Stool Amount Large O2/Vent: RA Infusions: NS 100 cc/hr Current Medications: Acetaminophen (Tylenol Tab*) 650 mg PO Q6H PRN PRN Reason: pain/fever Last Admin: 07/23/17 09:08 Dose: 650 mg Albuterol/Ipratropium (Duoneb (Albuterol 2.5 Mg/Ipratropium 0.5 Mg)) 1 neb INH Q4H PRN PRN Reason: SOB/WHEEZING Alprazolam (Xanax Tab*) 0.5 mg PO TID PRN PRN Reason: AGITATION/ANXIETY Last Admin: 07/23/17 06:34 Dose: 0.5 mg Bupropion HCl (Bupropion Xl*) 300 mg PO DAILY PRN PRN Reason: PER PROTOCOL Clonazepam (Klonopin Tab(*)) 1 mg PO QPM [facility] Last Admin: 07/22/17 18:41 Dose: Not Given Haloperidol (Haldol Tab*) 4 mg PO BID [facility] Last Admin: 07/23/17 07:19 Dose: 4 mg Heparin Sodium (Porcine) (Heparin Vial(*)) 5,000 units SUBCUT Q8HR [facility] Last Admin: 07/23/17 06:27 Dose: 5,000 units Ceftriaxone Sodium 1 gm/ (Sodium Chloride) 50 mls @ 200 mls/hr IVPB Q24H [facility] Last Admin: 07/22/17 11:09 Dose: 200 mls/hr Azithromycin 500 mg/ Sodium (Chloride) 250 mls @ 250 mls/hr IVPB Q24H [facility] Last Admin: 07/23/17 08:31 Dose: 250 mls/hr Sodium Chloride (Ns 0.9% 1000 Ml*) 1,000 mls @ 100 mls/hr IV PER RATE [facility] Last Admin: 07/22/17 21:00 Dose: 100 mls/hr Methylphenidate HCl (Ritalin Tab*) 10 mg PO 0800,1500 [facility] Last Admin: 07/23/17 08:32 Dose: 10 mg Morphine Sulfate (Morphine Inj (Syringe)*) 2 mg IV Q4H PRN PRN Reason: PAIN Ursodiol (Actigall Cap*) 300 mg PO BID [facility] Last Admin: 07/23/17 08:31 Dose: 300 mg Physical Exam: General: awake, alert, no distress, no diaphoresis Head: normocephalic, atraumatic HEENT: no pallor, no icterus, moist mucous membranes Neck: soft, supple, no jvd, no stridor CVS: normal rate, regular, no murmur Resp: bilateral air entry, no rhales, no wheeze, no rhonchi, no acc muscle use Abdomen: soft, nontender, nondistended, bs+ Ext: pulses+, warm, no edema Skin: intact Neuro: awake, alert, orientedx3, moving all extremities, no gross focal deficit Labs: Laboratory Results - last 24 hr 07/22/17 07/22/17 07/22/17 10:48 10:48 10:52 WBC RBC Hgb Hct MCV MCH MCHC RDW Plt Count MPV Sodium 120 L Potassium 3.6 Chloride 89 L Carbon Dioxide 23 Anion Gap 8 BUN 22 Creatinine 0.60 L Est GFR ( Amer) 174.4 Est GFR (Non-Af Amer) 135.6 BUN/Creatinine Ratio 36.7 H Glucose 84 Serum Osmolality Lactic Acid Calcium 8.0 L Total Bilirubin Direct Bilirubin Indirect Bilirubin AST ALT Alkaline Phosphatase [place] Total Creatine Kinase Troponin I 0.04 H* Total Protein Albumin Globulin Albumin/Globulin Ratio Urine Osmolality 230 Ur Random Creatinine 20.32 Ur Random Sodium < 18 07/22/17 07/22/17 07/22/17 10:52 12:42 16:41 WBC RBC Hgb Hct MCV MCH MCHC RDW Plt Count MPV Sodium Potassium Chloride Carbon Dioxide Anion Gap BUN Creatinine Est GFR ( Amer) Est GFR (Non-Af Amer) BUN/Creatinine Ratio Glucose Serum Osmolality 255 L Lactic Acid 1.5 Calcium Total Bilirubin Direct Bilirubin Indirect Bilirubin AST ALT Alkaline Phosphatase Ammonia 39 Total Creatine Kinase Troponin I Total Protein Albumin Globulin Albumin/Globulin Ratio Urine Osmolality Ur Random Creatinine Ur Random Sodium 07/22/17 07/22/17 07/23/17 16:41 23:00 06:26 WBC RBC Hgb Hct MCV MCH MCHC RDW Plt Count MPV Sodium 119 L* 120 L 122 L Potassium 3.6 3.8 3.8 Chloride 91 L 89 L 91 L Carbon Dioxide 22 22 23 Anion Gap 6 9 8 BUN 19 18 17 Creatinine 0.59 L 0.54 L 0.56 L Est GFR ( Amer) 177.9 197.0 188.9 Est GFR (Non-Af Amer) 138.3 153.2 146.9 BUN/Creatinine Ratio 32.2 H 33.3 H 30.4 H Glucose 117 H 89 79 Serum Osmolality Lactic Acid Calcium 7.9 L 8.2 L 8.5 L Total Bilirubin 1.60 H Direct Bilirubin 0.50 H Indirect Bilirubin 1.1 H AST 179 H ALT 53 H Alkaline Phosphatase 350 H Ammonia Total Creatine Kinase 765 H Troponin I Total Protein 5.3 L Albumin 3.3 Globulin 2.0 Albumin/Globulin Ratio 1.7 Urine Osmolality Ur Random Creatinine Ur Random Sodium 07/23/17 06:26 WBC 13.7 H RBC 3.60 L Hgb 12.2 L Hct 35 L MCV 96 H MCH 34 H MCHC 35 RDW 14 Plt Count 215 MPV 6.4 L Sodium Potassium Chloride Carbon Dioxide Anion Gap BUN Creatinine Est GFR ( Amer) Est GFR (Non-Af Amer) BUN/Creatinine Ratio Glucose Serum Osmolality Lactic Acid Calcium Total Bilirubin Direct Bilirubin Indirect Bilirubin AST ALT Alkaline Phosphatase [place] Total Creatine Kinase Troponin I Total Protein Albumin Globulin Albumin/Globulin Ratio Urine Osmolality Ur Random Creatinine Ur Random Sodium Imaging: cxr 07/22 - reviewed ; reticulonodular densities bilaterally, suspected right lower lobe consolidation+ CT chest/abd/pelvis 07/22 - Large hepatic masses+, mediastinal/hilar LN+, pulm nodules with some cavitation+ Assessment: 62y M w/pmhx of HTN, cholelithiasis, anxiety disorder, Aspergers disorder, testicular dysfunction, spinal stenosis, tobacco use; presents to ER for weakness x3 days, associated with weakness in upper extremities. He states incontinence noted at home. Patient fell at home and unable to stand, hence he called EMS. Hypotensive to 80s in ER, responded to IVF. -Hepatic Masses, suspect primary vs metastatic disease -Pulmonary nodules -Mediastinal LN -s/p fall -Rhabdomyolysis -hypovolemic hyponatremia -Elevated LFTs -r/o biliary obstruction Aspergers disorder Anxiety disorder Plan: Neuro- stable. Known history of Aspergers. Cont Ritalin. Cont clonazepam and Alprazolam PRN. CVS- BP stable. Cont IVF hydration. Suspect volume depletion intravascular, poor PO intake+, hypovolemia. No clear sepsis source identified. No clear pneumonia. Cont Empiric Abx for 24-48 hours. Resp- on RA, no distress. CT chest with more effusions and atelectasis than pneumonia, unclear what nodules may be but some sampling would probably be needed for pathology. If patient going to IR, would prob recommend drainage of Right side and sent for pathology. No acute need for drainage, no resp distress noted. Bronchodilators PRN. ID- afebrile. wbc 13. Hepatic masses with mediastinal LN and pulm nodules. NO clear septic source but this could be related to tumours. Maybe some intrahep biliary obstruction causing rise in LFTs. Cont Ceftriaxone for 24-48 hours empirically (day#2), d/c ángela. GI- CT abd/pelvis reviewed; hepatic mets+, LN+. Discussed with Dr Rodriguez and patient. She will order for liver +/- LN biopsy for diagnosis. Add AFP level. LFTs wtih alk phos elevated, no clear biliary extrahep dilatation though, intrahep? Tolerating Po diet. Renal- Cr okay. BUN okay. Hyponatremia/hypochloremia, maybe some intravasc depletion, but does have effusions. Na slowly improvintg with NaCL infusion. Would continue for now. If no improvement in coming 48 hours, can give tolvaptan x1 dose if he seems euvolemic for increasing Na level. Possible paraneoplastic syndrome and SIADH? CPK downtrending, cont IVF for clearance. No aleman. Heme- hg stable. plt okay. DVT proph with heparin sq/mechanical. Endo- fingersticks as needed. TSH normal. Musculsk- no noted weakness, able to move all ext. Noted rhabdo, CPK improving Wounds- none Nutrition- regular diet for now. DVT prophylaxis: heparin sq GI prophylaxis: none Central Line: no Arterial Line: no Aleman Cathetor: no Disposition: stable for transfer to medical floor, discussed with Dr Rodriguez. Critical care to sign off. Code Status: full code Александр Leigh MD Marine Engine Machinist Apprentice (Electronically Signed)
[2017-07-23] MEDS: cefTRIAXone(*) 1 GM in NS 0.9% 50 ML* 50 ML IVPB SCH (10:34)
--- NOTE | 2017-07-23 12:34 | PN ---
Subjective Date of Service: 07/23/17 Interval History: HOSPITALIST PROGRESS NOTE Patient seen and examined at bedside. Care reviewed and d/w with his RN Rhonda House. He did not sleep well last night. Feels a little better today. Denies pain, appetite is okay. Still feels weak. Family History: Unchanged from Admission Social History: Unchanged from Admission Past Medical History: Unchanged from Admission Objective Active Medications: Acetaminophen (Tylenol Tab*) 650 mg PO Q6H PRN PRN Reason: pain/fever Last Admin: 07/23/17 09:08 Dose: 650 mg Albuterol/Ipratropium (Duoneb (Albuterol 2.5 Mg/Ipratropium 0.5 Mg)) 1 neb INH Q4H PRN PRN Reason: SOB/WHEEZING Alprazolam (Xanax Tab*) 0.5 mg PO TID PRN PRN Reason: AGITATION/ANXIETY Last Admin: 07/23/17 06:34 Dose: 0.5 mg Bupropion HCl (Bupropion Xl*) 300 mg PO DAILY PRN PRN Reason: PER PROTOCOL Clonazepam (Klonopin Tab(*)) 1 mg PO QPM [facility] Last Admin: 07/22/17 18:41 Dose: Not Given Haloperidol (Haldol Tab*) 4 mg PO BID [facility] Last Admin: 07/23/17 07:19 Dose: 4 mg Heparin Sodium (Porcine) (Heparin Vial(*)) 5,000 units SUBCUT Q8HR [facility] Last Admin: 07/23/17 06:27 Dose: 5,000 units Ceftriaxone Sodium 1 gm/ (Sodium Chloride) 50 mls @ 200 mls/hr IVPB Q24H [facility] Last Admin: 07/23/17 10:34 Dose: 200 mls/hr Sodium Chloride (Ns 0.9% 1000 Ml*) 1,000 mls @ 100 mls/hr IV PER RATE [facility] Last Admin: 07/22/17 21:00 Dose: 100 mls/hr Methylphenidate HCl (Ritalin Tab*) 10 mg PO 0800,1500 [facility] Last Admin: 07/23/17 08:32 Dose: 10 mg Morphine Sulfate (Morphine Inj (Syringe)*) 2 mg IV Q4H PRN PRN Reason: PAIN Ursodiol (Actigall Cap*) 300 mg PO BID [facility] Last Admin: 07/23/17 08:31 Dose: 300 mg Vital Signs - 8 hr 07/23/17 07/23/17 07/23/17 10:15 10:30 10:46 Temperature Pulse Rate 98 97 97 Respiratory 21 20 22 Rate Blood Pressure 97/62 100/69 91/61 (mmHg) O2 Sat by Pulse 97 97 96 Oximetry 07/23/17 07/23/17 11:00 11:45 Temperature 98.2 F Pulse Rate 98 99 Respiratory 21 16 Rate Blood Pressure 105/82 111/68 (mmHg) O2 Sat by Pulse 94 99 Oximetry Oxygen Devices in Use Now: None Appearance: Elderly male, appears older than stated age, with disheveled appearance, lying in bed in NAD. Eyes: - - Mild scleral icterus Ears/Nose/Mouth/Throat: Mucous Membranes Moist Neck: Trachea Midline, - - Probable palpable lymphnode left supraclavicular fossa Respiratory: Symmetrical Chest Expansion and Respiratory Effort, Clear to Auscultation Cardiovascular: RRR - Normal S1 and S2 Abdominal: - - Soft, NT, hepatomegaly, BS+ Skin: - - Multiple bruises in different stages of healing Neurological: Alert and Oriented x 3, NL Muscle Strength and Tone Result Diagrams: 07/23/17 06:26 07/23/17 06:26 Assess/Plan/Problems-Billing Assessment: Mr. Jaramillo is a 62yo M with PMH of Asperger's syndrome, testicular hypofunction , cholelithiasis, spinal stenosis, tobacco abuse, HTN, HLD, who presented to ED with c/o weakness, found to have metastatic disease. - Patient Problems (1) SIRS (systemic inflammatory response syndrome) Comment: - Patient's presentation on admission was compatible with SIRS with tachycardia and leukocytosis. Initially impression was of severe sepsis with pneumonia, but at this point he does not seem to have an infectious insult. - Source appears to be malignancy with metastasis and not pneumonia. - Will continue antibiotics for now, but if no culture growth by tomorrow, will d/c it. - Transfer to Telemetry. (2) Metastasis Comment: - CT chest/abdome/pelvis reviewed - it shows extensive disease, including cervical, mediastinal, hilar, mesenteric, and retroperitoneal lymphadenopathy; multiple pulmonary nodules, multiple hepatic masses, compatible with metastatic disease. - Pathology consult requested for cervical lymphadenopathy biopsy - if not possible will pursue liver biopsy. - Oncology consult requested. - Patient is aware his diagnosis is most likely a type of cancer. No family or friends involved in his care. Will request rn social services consult. (3) Transaminitis Comment: - Secondary to liver tumors. (4) Hyponatremia Comment: - Multifactorial - secondary to dehydration, lung lesions. - Trending up with IVF, MS is intact. - Continue to monitor. (5) DVT prophylaxis Comment: - SQ heparin. (6) Full code status Status and Disposition: Inpatient for management of metastatic disease.
[2017-07-23] MEDS: clonazePAM TAB(*) 1 MG PO SCH (18:20)
[2017-07-23] MEDS: NS 0.9% 1000 ML* 1,000 ML IV SCH (22:00)
[2017-07-24 06:09] LABS: ABS Basophils 0.2 10^3/ul (0-0.2); ABS Eosinophils 0 10^3/ul (0-0.6); ABS Lymphocytes 0.2 10^3/ul (1.0-4.8); ABS Monocytes 0.7 10^3/ul (0-0.8); ABS Nucleated RBC 0 10^3/ul; Eosinophil % 0.1 % (0-6); Hematocrit 32 % (42-52); Hemoglobin 11.3 g/dl (14.0-18.0); Lymphocyte % 1.2 % (25-47); Mean Corpuscular HGB Conc 36 g/dl (31-36); Mean Corpuscular Hemoglobin 34 pg (27-31); Mean Corpuscular Volume 95 fL (80-94); Mean Platelet Volume 6.2 um3 (7.4-10.4); Nucleated Red Blood Cells % 0; Platelet Count 179 10^3/ul (150-450); Red Blood Count 3.36 10^6/ul (4.0-5.4); Red Cell Distribution Width 14 % (10.5-15)
[2017-07-24 06:36] LABS: EGFR Non-African American 184.3 (>60)
[2017-07-24] MEDS: Heparin VIAL(*) 5000 UNITS/ML VIAL (FIVE THOUSAND) SUBCUT SCH ×3 (06:40→21:59)
[2017-07-24] MEDS: Methylphenidate TAB* 10 MG PO SCH (07:49)
[2017-07-24] MEDS: Potassium Chloride LIQUID* 20 MEQ PACKET PO SCH ×2 (07:50→12:33)
[2017-07-24] MEDS ORDERED: Morphine VIAL* 4 MG/ML VIAL (1 ml vial) IV PRN (08:08)
[2017-07-24] MEDS: Haloperidol TAB* 2 MG PO SCH ×2 (08:28→21:59)
[2017-07-24] MEDS: Ursodiol CAP* 300 MG PO SCH ×2 (08:28→21:59)
[2017-07-24] MEDS: NS 0.9% 1000 ML* 1,000 ML IV SCH (08:30)
[2017-07-24] MEDS: cefTRIAXone(*) 1 GM in NS 0.9% 50 ML* 50 ML IVPB SCH (10:34)
[2017-07-24] MEDS: oxyCODONE TAB* 5 MG TAB PO PRN ×2 (12:33→19:26)
[2017-07-24] MEDS: ALPRAZolam TAB* 0.5 MG PO PRN (12:45)
[2017-07-24] MEDS ORDERED: Methylphenidate TAB* 10 MG PO SCH (14:00)
--- NOTE | 2017-07-24 15:04 | CONS ---
CC: Kalen Parr MD; Des Horta MD * MEDICAL ONCOLOGY CONSULTATION NOTE: DATE OF CONSULT: 07/23/17 REASON FOR CONSULT: Newly diagnosed carcinoma with widespread metastatic disease and poor performance status. HISTORY OF PRESENT ILLNESS: Mr. Jaramillo is a 62-year-old male with a longstanding underlying history of autism spectrum disorder/Asperger's, as well as paranoia and disability. He has been living alone his entire life. He reports being disabled since 1980. He lives in an apartment on a second floor and for the past 2 months has been unable to get up and downstairs. He has food delivered through [employer] and also internet delivery. He reports having no contact with any friends. He reports his closet relative is a cousin in [place], who did not respond to his most recent letter. He reports that his appetite has been poor as he also has had issues with dentition for the past year and has been unable to take in much in the way of solid foods for this period of time. He has noted significant weakness in the muscles in his legs. He tried to self medicate with B12 shots and vitamin. He reports being unable to walk for one room to the next recently and sustained a fall at home. He has had multiple recent falls one which he believed he fell and broke ribs on his right side about three months ago. After the most recent fall, he was unable to get up and literally had to drag himself to next room to knock phone off with his cane and call EMS. He reports that he has had a dry cough and decreased breathing over the past several days to a week. He reports that he has had marked decrease in ability to function over the past month. PAST MEDICAL HISTORY: 1. Autism spectrum disorder/Asperger's. 2. Longstanding paranoia. 3. Cholelithiasis. 4. Tobacco abuse. 5. Hypertension. 6. Hyperlipidemia. 7. Paranoia/schizophrenia. MEDICATIONS: At the time of admission, include: 1. Alprazolam 0.5 mg t.i.d. p.r.n. anxiety. 2. Bupropion XL 300 mg daily. 3. Clonazepam 1 mg q.h.s. 4. Haldol 4 mg b.i.d. 5. Methylphenidate 10 mg b.i.d. to t.i.d. 6. Metoprolol 50 mg daily. 7. Ursodiol 300 mg b.i.d. ALLERGIES: PENICILLIN AND TAZORAC. FAMILY HISTORY: Mother had breast cancer and at the age 65. Father with colon cancer, at age 57 in 1972 shortly after diagnosis. SOCIAL HISTORY: The patient has lived by himself his entire life. He reports that his last work was after he had moved to [place] in 2001 at where he volunteered for just several days. 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 Reports often times unable to live in the apartment on his own. Smoker since age 14, 2 packs per day, down to recently half pack per day. Alcohol: Very heavy in the past, although reports that it was mostly as a binge drinker. This occurred after his mother in 1996. He has no surrogate decision makers. No relatives with whom he is in contact. REVIEW OF SYSTEMS: Reports weight increased after his mother in 1996 to 270. Currently, he is 195 and reports having lost significant weight in the past several months. He is extremely weak and fatigued, has shortness of breath. Denies any symptoms related to recent infection. Review of systems otherwise as discussed in accompanying history above. PHYSICAL EXAM: A 62-year-old male, whose thought process appears somewhat slow , may be related to medications and who is extremely particular in his choice of the word and his ability to answer questions. He appears quite disheveled and unkempt. Vital Signs: Blood pressure 112/69, pulse 110. Afebrile. HEENT: PERRL, EOMI. No erythema or exudates. Lungs: Clear except for decreased breath sounds bilaterally, especially at the bases. No rales, wheezes, or rhonchi. Heart: Regular rate and rhythm. No rubs or gallops. Abdomen: Soft with mild discomfort in the epigastrium and right upper quadrant. Liver is easily palpated 4 to 5 fingerbreadths below the right costal margins, does not extend past midline. No guarding, no rebound. Extremities: No edema. Multiple bruises on the skin, especially around the knees where he reports having struck himself when falling and also significant ecchymosis elsewhere. No petechiae. Neurologic Exam: Motor is 4 to 5/5 in the upper extremities, it is about 4/5 in the lower extremities. The patient is alert and oriented x3. LABORATORY STUDIES: On admission, had significantly elevated LFTs with ALT 58, AST 169, alk phos 243, bilirubin of 2.3, total CK of 1388. Renal function, BUN and creatinine 26/0.75. Sodium on admission was 116, potassium 3.9, chloride 80 , bicarb 26. Subsequent to admission, the LFTs have been improved slightly and the sodium has improved to 122. CBC with a white count of 13,700, H and H 35/ 12.2, and platelet count of 215,000. IMAGING STUDIES: Have included a CT scan of the chest, abdomen, and pelvis on 07/22/2017. This reveals multiple very large liver lesions measuring up to 9 cm in size, replacing majority of the liver parenchyma. There were enlarged AP window, paratracheal and subcarinal lymph nodes up to 2 cm, some of which appear necrotic. In addition, there are enlarged left hilar lymph nodes up to 2 cm as well as supraclavicular adenopathy on the left. The lungs reveal innumerable pulmonary parenchymal nodules of both lung nuñez, some of the larger ones of which appear cavitary. No bony lesions are noted. There is also retroperitoneal and mesenteric adenopathy up to approximately 2 cm and there also are large bilateral pleural effusions present. CT scan of the spine without any obvious metastatic lesions. Incidental findings are noted, most of which relate to the findings found on the chest, abdomen, pelvis CT. IMPRESSION: 1. A 62-year-old male with pathology still pending after FNA of left supraclavicular adenopathy of almost certainly with metastatic carcinoma, stage IV. Given his history and his current appearance on CT scan, lung would be the most likely, but certainly GI tract primary or other sites cannot be ruled out. If this were to turner in to be small cell lung cancer, given the patient's current performance status and widespread disease, chemotherapy might be a reasonable option for him, as it might improve quality of life significantly. If this were to turner in to be an adeno or squamous carcinoma with widespread metastatic disease and his current performance status, it is unlikely that we would help him especially given his liver being mostly replaced by tumor with any chemotherapy. In that situation, hospice would certainly seem to be the most appropriate. Code status was not discussed with the patient today, but we will be discussed with him tomorrow once we have at least pulmonary pathology back. 2. On admission with the rhabdomyolysis with CK of 1300 related to his prolonged period of immobility on the floor. 3. Severe hyponatremia, likely secondary to SIADH associated with his underlying lung issues, Since admission with hydration, sodium has improved somewhat. 4. On admission, there was some question of sepsis. His blood pressure was low , however, it appears as though this is more likely related to widespread metastatic cancer than to sepsis as the situation has evolved. [id number]/CPS #: [id number] MTDD
--- NOTE | 2017-07-24 15:28 | PN ---
Subjective Date of Service: 07/24/17 Interval History: HOSPITALIST PROGRESS NOTE Patient seen and examined at bedside. He feels a little better today. Morphine has helped greatly with his pain, but he doesn't like it made his mind "foggy". Family History: Unchanged from Admission Social History: Unchanged from Admission Past Medical History: Unchanged from Admission Objective Active Medications: Acetaminophen (Tylenol Tab*) 650 mg PO Q6H PRN PRN Reason: pain/fever Last Admin: 07/23/17 18:24 Dose: 650 mg Albuterol/Ipratropium (Duoneb (Albuterol 2.5 Mg/Ipratropium 0.5 Mg)) 1 neb INH Q4H PRN PRN Reason: SOB/WHEEZING Alprazolam (Xanax Tab*) 0.5 mg PO TID PRN PRN Reason: AGITATION/ANXIETY Last Admin: 07/24/17 12:45 Dose: 0.5 mg Bupropion HCl (Bupropion Xl*) 300 mg PO DAILY PRN PRN Reason: PER PROTOCOL Clonazepam (Klonopin Tab(*)) 1 mg PO QPM [facility] Last Admin: 07/23/17 18:20 Dose: 1 mg Haloperidol (Haldol Tab*) 4 mg PO BID [facility] Last Admin: 07/24/17 08:28 Dose: 4 mg Heparin Sodium (Porcine) (Heparin Vial(*)) 5,000 units SUBCUT Q8HR [facility] Last Admin: 07/24/17 14:06 Dose: 5,000 units Methylphenidate HCl (Ritalin Tab*) 10 mg PO TID [facility] Last Admin: 07/24/17 14:06 Dose: 10 mg Morphine Sulfate (Morphine Vial*) 2 mg IV Q4H PRN PRN Reason: PAIN Last Admin: 07/24/17 08:28 Dose: 2 mg Oxycodone HCl (Roxycodone Tab*) 5 mg PO Q6H PRN PRN Reason: PAIN Last Admin: 07/24/17 12:33 Dose: 5 mg Ursodiol (Actigall Cap*) 300 mg PO BID [facility] Last Admin: 07/24/17 08:28 Dose: Not Given Vital Signs - 8 hr 07/24/17 07/24/17 07/24/17 07:29 08:00 12:00 Temperature 98.7 F 98.5 F Pulse Rate 110 113 Respiratory 16 16 18 Rate Blood Pressure 133/85 127/77 (mmHg) O2 Sat by Pulse 95 96 Oximetry 07/24/17 07/24/17 12:33 12:45 Temperature Pulse Rate Respiratory 18 18 Rate Blood Pressure (mmHg) O2 Sat by Pulse Oximetry Oxygen Devices in Use Now: None Appearance: Pleasant elderly male sitting up in bed in NAD. Eyes: No Scleral Icterus Ears/Nose/Mouth/Throat: Mucous Membranes Moist Neck: Trachea Midline Respiratory: Symmetrical Chest Expansion and Respiratory Effort, Clear to Auscultation Cardiovascular: RRR - Normal S1 and S2 Abdominal: NL Sounds; No Tenderness; No Distention, - - Hepatomegaly Neurological: Alert and Oriented x 3 Result Diagrams: 07/24/17 05:54 07/24/17 05:54 Assess/Plan/Problems-Billing Assessment: Mr. Jaramillo is a 62yo M with PMH of Asperger's syndrome, testicular hypofunction , cholelithiasis, spinal stenosis, tobacco abuse, HTN, HLD, who presented to ED with c/o weakness, found to have metastatic disease. - Patient Problems (1) SIRS (systemic inflammatory response syndrome) Comment: - Patient's presentation on admission was compatible with SIRS with tachycardia and leukocytosis. Initially impression was of severe sepsis with pneumonia, but at this point he does not seem to have an infectious insult. - Source appears to be malignancy with metastasis and not pneumonia. - D/c antibiotics. (2) Metastasis Comment: - CT chest/abdome/pelvis reviewed - it shows extensive disease, including cervical, mediastinal, hilar, mesenteric, and retroperitoneal lymphadenopathy; multiple pulmonary nodules, multiple hepatic masses, compatible with metastatic disease. - Lymph node path reveals moderate to poorly diferentiated adenocarcinoma. D/w patient - he states his father passed of metastic colon CA in his 50s and the patient saw his decline (9 months between diagnosis and ) and he does not want to go through it. Willing to talk to oncology but interested in hospice. (3) Transaminitis Comment: - Secondary to liver tumors. (4) Hyponatremia Comment: - Multifactorial - secondary to dehydration, lung lesions. (5) DVT prophylaxis Comment: - SQ heparin. (6) Full code status Status and Disposition: Inpatient for management of metastatic disease.
[2017-07-24] MEDS: clonazePAM TAB(*) 1 MG PO SCH (18:20)
[2017-07-25] MEDS: Heparin VIAL(*) 5000 UNITS/ML VIAL (FIVE THOUSAND) SUBCUT SCH ×3 (06:29→20:28)
[2017-07-25] MEDS: Methylphenidate TAB* 10 MG PO SCH ×3 (06:30→15:51)
[2017-07-25] MEDS: Haloperidol TAB* 2 MG PO SCH ×2 (08:47→20:28)
[2017-07-25] MEDS: Ursodiol CAP* 300 MG PO SCH ×2 (08:48→20:28)
[2017-07-25] MEDS: oxyCODONE TAB* 5 MG TAB PO PRN ×3 (08:48→17:37)
[2017-07-25] MEDS: ALPRAZolam TAB* 0.5 MG PO PRN ×2 (08:48→13:29)
[2017-07-25] MEDS ORDERED: oxyCODONE TAB* 5 MG TAB PO PRN (11:57)
--- NOTE | 2017-07-25 13:22 | PN ---
Subjective Date of Service: 07/25/17 Interval History: HOSPITALIST PROGRESS NOTE Patient seen and examined at bedside. He feels a little better today. Oxycodone is working better than Morphine for him, but pain is still a 7/10. Reminiscing about his life in [facility] in the 80s. Family History: Unchanged from Admission Social History: Unchanged from Admission Past Medical History: Unchanged from Admission Objective Active Medications: Acetaminophen (Tylenol Tab*) 650 mg PO Q6H PRN PRN Reason: pain/fever Last Admin: 07/23/17 18:24 Dose: 650 mg Albuterol/Ipratropium (Duoneb (Albuterol 2.5 Mg/Ipratropium 0.5 Mg)) 1 neb INH Q4H PRN PRN Reason: SOB/WHEEZING Alprazolam (Xanax Tab*) 0.5 mg PO TID PRN PRN Reason: AGITATION/ANXIETY Last Admin: 07/25/17 08:48 Dose: 0.5 mg Bupropion HCl (Bupropion Xl*) 300 mg PO DAILY PRN PRN Reason: PER PROTOCOL Clonazepam (Klonopin Tab(*)) 1 mg PO QPM [facility] Last Admin: 07/24/17 18:20 Dose: 1 mg Haloperidol (Haldol Tab*) 4 mg PO BID [facility] Last Admin: 07/25/17 08:47 Dose: 4 mg Heparin Sodium (Porcine) (Heparin Vial(*)) 5,000 units SUBCUT Q8HR [facility] Last Admin: 07/25/17 06:29 Dose: 5,000 units Methylphenidate HCl (Ritalin Tab*) 10 mg PO TID@0600,1100,1600 [facility] Last Admin: 07/25/17 11:33 Dose: 10 mg Morphine Sulfate (Morphine Vial*) 2 mg IV Q4H PRN PRN Reason: PAIN Last Admin: 07/24/17 08:28 Dose: 2 mg Oxycodone HCl (Roxycodone Tab*) 10 mg PO Q4H PRN PRN Reason: Moderate to severe pain Oxycodone HCl (Roxycodone Tab*) 5 mg PO Q4H PRN PRN Reason: Mild Pain Ursodiol (Actigall Cap*) 300 mg PO BID [facility] Last Admin: 07/25/17 08:48 Dose: 300 mg Vital Signs - 8 hr 07/25/17 07/25/17 07/25/17 08:00 08:03 08:48 Temperature 98.1 F Pulse Rate 112 Respiratory 16 18 16 Rate Blood Pressure 139/89 (mmHg) O2 Sat by Pulse 95 Oximetry Oxygen Devices in Use Now: None Appearance: Pleasant gentleman lying in bed in NAD. Eyes: - - Mild scleral icterus Ears/Nose/Mouth/Throat: Mucous Membranes Moist Neck: Trachea Midline Respiratory: Symmetrical Chest Expansion and Respiratory Effort, Clear to Auscultation Cardiovascular: RRR - Normal S1 and S2 Abdominal: NL Sounds; No Tenderness; No Distention, - - Hepatomegaly Extremities: No Edema Neurological: Alert and Oriented x 3, NL Muscle Strength and Tone Result Diagrams: 07/24/17 05:54 07/24/17 05:54 Assess/Plan/Problems-Billing Assessment: Mr. Jaramillo is a 62yo M with PMH of Asperger's syndrome, testicular hypofunction , cholelithiasis, spinal stenosis, tobacco abuse, HTN, HLD, who presented to ED with c/o weakness, found to have metastatic disease. - Patient Problems (1) SIRS (systemic inflammatory response syndrome) Comment: - Patient's presentation on admission was compatible with SIRS with tachycardia and leukocytosis. Initially impression was of severe sepsis with pneumonia, but at this point he does not seem to have an infectious insult. - Source appears to be malignancy with metastasis and not pneumonia. - D/c antibiotics. (2) Metastasis Comment: - CT chest/abdome/pelvis reviewed - it shows extensive disease, including cervical, mediastinal, hilar, mesenteric, and retroperitoneal lymphadenopathy; multiple pulmonary nodules, multiple hepatic masses, compatible with metastatic disease. - Lymph node path reveals moderate to poorly diferentiated adenocarcinoma. D/w patient - he states his father passed of metastic colon CA in his 50s and the patient saw his decline (9 months between diagnosis and ) and he does not want to go through it. Interested in hospice. (3) Transaminitis Comment: - Secondary to liver tumors. (4) Hyponatremia Comment: - Multifactorial - secondary to dehydration, lung lesions. (5) Protein calorie malnutrition Comment: - Patient has lost >80lbs. - Will check prealbumin. (6) DVT prophylaxis Comment: - SQ heparin. (7) Full code status Status and Disposition: Inpatient for management of metastatic disease.
[2017-07-25] MEDS: clonazePAM TAB(*) 1 MG PO SCH (17:38)
[2017-07-26] MEDS: oxyCODONE TAB* 5 MG TAB PO PRN ×2 (05:32→10:16)
[2017-07-26] MEDS: Methylphenidate TAB* 10 MG PO SCH ×2 (05:32→10:13)
[2017-07-26] MEDS: Heparin VIAL(*) 5000 UNITS/ML VIAL (FIVE THOUSAND) SUBCUT SCH (05:33)
[2017-07-26] MEDS: ALPRAZolam TAB* 0.5 MG PO PRN ×2 (05:57→10:13)
[2017-07-26 08:20] VITALS: BP 128/85
[2017-07-26] MEDS: Ursodiol CAP* 300 MG PO SCH (08:23)
[2017-07-26] MEDS: Haloperidol TAB* 2 MG PO SCH (08:23)
[2017-07-26] MEDS ORDERED: Haloperidol TAB* 2 MG PO SCH (14:00)
--- NOTE | 2017-07-26 23:10 | DS ---
CC: Dr. Kalen Parr; Dr. Horta; Dr. Lesley Morgan DISCHARGE SUMMARY: DATE OF ADMISSION: 07/22/17 DATE OF DISCHARGE: 07/26/17 PRIMARY CARE PROVIDER: Dr. Kalen Parr. ONCOLOGIST: Dr. Horta HOSPICE PHYSICIAN: Dr. Lesley Morgan. DISCHARGE DIAGNOSES: 1. Diffusely metastatic adenocarcinoma. 2. Hyponatremia. 3. Systemic inflammatory response syndrome secondary to malignancy. 4. Moderate to severe protein-calorie malnutrition. SECONDARY DIAGNOSES: 1. Asperger's syndrome. 2. Testicular hypofunction. 3. Cholelithiasis. 4. Spinal stenosis. 5. Tobacco abuse. 6. Hypertension. 7. Hyperlipidemia. MEDICATIONS: At the time of transfer: 1. Alprazolam 0.5 mg p.o. t.i.d. as needed for agitation and anxiety. 2. Bupropion XL 300 mg p.o. daily as needed for depression. 3. Clonazepam 1 mg p.o. at bedtime. 4. Haloperidol 4 mg p.o. t.i.d. 5. Methylphenidate 10 mg p.o. b.i.d. to t.i.d. 6. Oxycodone 10 mg p.o. q.4 hours p.r.n. pain. HOSPITAL COURSE: Mr. Jaramillo is a 62-year-old male with a past medical history as stated above that p resented to the emergency room with complaints of weakness and multiple falls at home. For more deta ils about his presentation, I refer you to his history and physical. Initially, the impression was that the patient had severe sepsis secondary to pneumonia with transami nitis and severe hyponatremia, but for a workup review, the patient was actually not infected, but he had metastatic malignancy. CT of the chest, abdomen, and pelvis showed innumerable pulmonary parenc hymal nodules several, which appear cavitary, mediastinal and left hilar lymphadenopathy with borderl ine enlarged lower cervical lymph nodes, multiple hepatic masses, retroperitoneal and mesenteric lymp hadenopathy. One of the cervical lymph nodes was biopsied and pathology revealed metastatic moderate to poorly differentiated adenocarcinoma and immunohistochemical stains showed CK7 strong positive an d TTF-1, napsin A, ALK were negative. So the phenotype is nonspecific, although lower gastrointestin al primary essentially ruled out. Differential diagnosis include pulmonary or upper gastrointestinal primary. The patient was seen in consultation by Oncology (Dr. Horta). The patient describes watching the dec line of his father who of metastatic colon cancer and was very clear that he would not want to p ursue treatment with chemotherapy. He was interested in being comfort at the end of his life and [facility] and was offered [facility]. He is medically stable for discharge at this time. PHYSICAL EXAMINATION: Vital Signs: Temperature 98.6, heart rate is 111, respiratory rate 16, oxygen saturation 95% on room air, blood pressure 128/85. General: The patient is thin, elderly male, lyin g in bed, in no acute distress. CVS: Normal S1, S2. Regular rate and rhythm. Chest: Breath sounds present bilaterally with no added sounds. Abdomen is distended with hepatomegaly. Bowel sounds pre sent. Skin: He has multiple bruises on different stage of healing due to his falls. Neuro: He is alert, oriented x3. Able to move all 4 extremities. DIET: Regular diet for comfort. ACTIVITIES: As tolerated. DISPOSITION: To the [facility] residence. CODE STATUS: DNR/DNI. STATUS WHILE IN THE HOSPITAL: Inpatient. Please keep in mind that this is a summarized version of this patient's hospital stay. If you need m ore information, please feel free to call me at [phone] or please obtain the full medical record s. TIME SPENT: Approximately 50 minutes was spent to complete this discharge. [id number]/CPS #: [id number]
== END 2017-07-26 11:30 | disposition hospice, inpatient (51) | DRG 180 ==
LOC: ED 04:34 → ICU 07:58 → MED 07-23 08:46
PROVIDERS: ADMIT Internal Medicine; ATTEND Internal Medicine
PROC: 07D23ZX Extraction of Left Neck Lymphatic, Percutaneous Approach, Diagnostic (ICD-10-PCS; principal; 2017-07-23)
DX: C78.02 Secondary malignant neoplasm of left lung (principal); E43 Unspecified severe protein-calorie malnutrition; C78.7 Secondary malignant neoplasm of liver and intrahepatic bile duct; E87.1 Hypo-osmolality and hyponatremia; R65.10 Systemic inflammatory response syndrome (SIRS) of non-infectious origin without acute organ dysfunction; F84.5 Asperger's syndrome; F20.0 Paranoid schizophrenia; C78.1 Secondary malignant neoplasm of mediastinum; C78.01 Secondary malignant neoplasm of right lung; E29.1 Testicular hypofunction; K80.20 Calculus of gallbladder without cholecystitis without obstruction; M48.00 Spinal stenosis, site unspecified; F17.210 Nicotine dependence, cigarettes, uncomplicated; I10 Essential (primary) hypertension; E78.5 Hyperlipidemia, unspecified; W18.30XA Fall on same level, unspecified, initial encounter; M51.36 Other intervertebral disc degeneration, lumbar region; M47.9 Spondylosis, unspecified; M85.88 Other specified disorders of bone density and structure, other site; R74.0 Nonspecific elevation of levels of transaminase and lactic acid dehydrogenase [LDH]; T79.6XXA Traumatic ischemia of muscle, initial encounter; R74.8 Abnormal levels of other serum enzymes; D72.829 Elevated white blood cell count, unspecified; F41.9 Anxiety disorder, unspecified; Y92.009 Unspecified place in unspecified non-institutional (private) residence as the place of occurrence of the external cause; Z80.0 Family history of malignant neoplasm of digestive organs; Z88.8 Allergy status to other drugs, medicaments and biological substances; Z68.22 Body mass index [BMI] 22.0-22.9, adult; Z88.0 Allergy status to penicillin; Z79.899 Other long term (current) drug therapy; Z80.3 Family history of malignant neoplasm of breast
CPT/HCPCS: 10021; 36415; 71045; 71260; 72128; 72131; 74177; 80048; 80053; 80076; 80307; 81003; 81015; 82105; 82140; 82550; 82570; 83605; 83880; 83930; 83935; 84134; 84300; 84443; 84484; 85025; 85027; 85610; 85730; 86140; 87040; 87086; 87641; 87899; 88172; 88173; 88305; 88341; 88342; 88360; 93005; 94640; 99282; A9270-GY; G8978-GP-CJ; G8979-GP-CI; G8987-GO-CK; G8988-GO-CI; J0456; J0696; J1644; J2270; J2405; J2543; J3370; Q9967